=== PATIENT | female | born 1965 | race Caucasian/White ===

== ENCOUNTER → 2024-01-28 06:23 | Day surgery (SDC) | payer OTHER, SELFPAY | LOC: GI 06:23 | PROVIDERS: ATTENDING PHYSICIAN Surgery | DX: Z12.11 Encounter for screening for malignant neoplasm of colon (principal); K57.30 Diverticulosis of large intestine without perforation or abscess without bleeding; K64.9 Unspecified hemorrhoids; Z86.010 Personal history of colon polyps | CPT/HCPCS: G0105 ==